=== PATIENT | male | born 1970 | race Caucasian/White ===

== ENCOUNTER → 2021-04-10 | Outpatient (CLI) | payer BC ==
[2021-04-10 12:10] LABS: HEMOGLOBIN 15.6 gm/dl (14.0-17.5); RED BLOOD COUNT 5.06 M/UL (4.20-5.50); WHITE BLOOD COUNT 8.2 K/UL (4.5-11.0)
[2021-04-10 12:33] LABS: BUN/CREATININE RATIO 16 (0-10)
[2021-04-11 09:14] LABS: THYROXINE (T4) 9.5 ug/dL (4.5-12.0)
[2021-04-11 11:14] LABS: CREATININE, URINE 109.6 mg/dL (Not Estab.)
== END ==
LOC: LAB 11:40
PROVIDERS: Nurse Practitioner Family
DX: E86.0 Dehydration (principal); R19.7 Diarrhea, unspecified; R81 Glycosuria; Z13.220 Encounter for screening for lipoid disorders; Z12.5 Encounter for screening for malignant neoplasm of prostate; R53.82 Chronic fatigue, unspecified; R10.816 Epigastric abdominal tenderness
CPT/HCPCS: 36415; 80053; 80061; 81001; 82043; 82150; 82570; 83036; 83690; 84153; 84436; 84443; 84480; 85025

== ENCOUNTER → 2021-09-24 | Outpatient (CLI) | payer BC | LOC: LAB 10:32 | DX: E11.9 Type 2 diabetes mellitus without complications (principal) | CPT/HCPCS: 36415; 83036 ==

== ENCOUNTER 2021-11-05 20:17 | Emergency (ER) | payer BC | END 2021-11-05 22:22 | disposition home or self-care (01) | LOC: ER1 20:17 | DX: S61.012A Laceration without foreign body of left thumb without damage to nail, initial encounter (principal); E11.9 Type 2 diabetes mellitus without complications; Z23 Encounter for immunization; W29.3XXA Contact with powered garden and outdoor hand tools and machinery, initial encounter | CPT/HCPCS: 12001; 73130; 73140; 90715; 96372; 99283; J0690 ==